=== PATIENT | female | born 1965 | race Hispanic/Latino ===

== ENCOUNTER → 2018-12-15 | Outpatient (CLI) | payer OTHER ==
[~2018-12-15] MED LIST: LEVO100T4 PO; LEVO500T2 PO; LEVO50TA4 PO; LORA10TA7 PO; NAPR-1023 PO
== END | disposition home or self-care (01) ==
LOC: RAH 15:18
DX: Z12.31 Encounter for screening mammogram for malignant neoplasm of breast (principal)
CPT/HCPCS: 77067

== ENCOUNTER 2019-04-18 11:46 | Inpatient (IN) | payer OTHER | END 2019-04-28 18:20 | disposition home or self-care (01) | LOC: EDH 11:46 → 3BH 04-26 16:15 → EDHIP 15:20 → 3CH 18:19 | PROC: 05HM33Z Insertion of Infusion Device into Right Internal Jugular Vein, Percutaneous Approach (ICD-10-PCS; principal; 2019-04-27 13:38) | PROC: B543ZZA Ultrasonography of Right Jugular Veins, Guidance (ICD-10-PCS; 2019-04-27 13:38) | DX: N17.9 Acute kidney failure, unspecified (principal); J18.9 Pneumonia, unspecified organism; I12.0 Hypertensive chronic kidney disease with stage 5 chronic kidney disease or end stage renal disease; N18.6 End stage renal disease; D64.9 Anemia, unspecified; E11.22 Type 2 diabetes mellitus with diabetic chronic kidney disease; I12.9 Hypertensive chronic kidney disease with stage 1 through stage 4 chronic kidney disease, or unspecified chronic kidney disease ==

== ENCOUNTER 2019-04-29 13:54 | Emergency (ER) | payer OTHER ==
[~2019-04-29 13:54] MED LIST changes: +BENZ-51 PO; +FEXO-59 PO; +FLUT16H NASAL; +FLUT1BLS12 IH; +IBUP-2077 PO; +LEVO100 PO; -LEVO100T4 PO; -LEVO500T2 PO; -LEVO50TA4 PO; +LISI10TA7 PO; -LORA10TA7 PO; +MONT10TA24 PO; -NAPR-1023 PO; +TRAM50TA4 PO; +ZOLP10TA6 PO
== END 2019-04-29 14:20 | disposition home or self-care (01) ==
LOC: EDH 13:54
DX: Z48.01 Encounter for change or removal of surgical wound dressing (principal); Z88.1 Allergy status to other antibiotic agents; Z98.890 Other specified postprocedural states
CPT/HCPCS: 99281

== ENCOUNTER 2019-05-08 14:25 | Observation (INO) | payer OTHER ==
[~2019-05-08] VITALS: Ht 157.5 cm; Wt 70.2 kg
[2019-05-08 15:17] LABS: EOSINOPHILS % (AUTO) 0.2 % (0.0-8.0); HEMATOCRIT 27.1 % (36-48); LYMPHOCYTES % (AUTO) 9.9 % (21.0-51.0); MEAN CORPUSCULAR HEMOGLOBIN 29.3 pg (27.0-33.0); MEAN CORPUSCULAR HGB CONC 33.9 g/dL (32.0-36.0); MEAN CORPUSCULAR VOLUME 86.6 fL (79-99); MONOCYTES % (AUTO) 3.5 % (3.0-13.0); NEUTROPHILS % (AUTO) 85.4 % (40.0-77.0); PLATELET COUNT (AUTO) 219 K/uL (130-400); RED BLOOD CELL COUNT(AUTO) 3.13 MIL/uL (4.00-5.50); RED CELL DISTRIBUTION WIDTH 15.9 % (11.0-15.5); WHITE BLOOD COUNT (AUTO) 10.6 K/uL (4.8-10.8)
[2019-05-08 15:32] LABS: INR 1.02 (0.85-1.15); PARTIAL THROMBOPLASTIN TIME 30.3 SEC (26.3-35.5); PROTHROMBIN TIME 10.7 SEC (9.6-11.6)
[2019-05-08] MEDS ORDERED: ONDANSETRON HCL 4 MG/2 ML VIAL ONE (15:34)
[2019-05-08] MEDS ORDERED: SODIUM CHLORIDE 0.9% 1000ML 1,000 ML IV ONE ×2 (15:35→20:26)
[2019-05-08 15:50] LABS: ALBUMIN 3.3 g/dL (3.5-5.0); ASPARTATE AMINOTRANSFERASE 17 U/L (10-37); BILIRUBIN,TOTAL 0.6 mg/dL (0.2-1.0); CARBON DIOXIDE 27 mmol/L (21-32); CHLORIDE 92 mmol/L (101-111); CREATINE KINASE, TOTAL 73 U/L (21-232); GLOMERULAR FILTR. RATE CALC 5 mL/min (>60); GLUCOSE,RANDOM 115 mg/dL (70-105); LDL DIRECT 104 mg/dL (0-99); POTASSIUM 3.6 mmol/L (3.5-5.1); SODIUM SERUM 133 mmol/L (136-145); TOTAL PROTEIN, SERUM 7.1 g/dL (6.0-8.3); UREA NITROGEN, BLOOD 31 mg/dL (7-18)
[2019-05-08 15:53] LABS: CREATININE 8.9 mg/dL (0.5-1.5)
[2019-05-08 16:03] LABS: ALANINE AMINOTRANSFERASE < 6 U/L (12-78)
[2019-05-08 17:15] LABS: APPEARANCE,URINE Clear (CLEAR); BILIRUBIN,URINE Negative (NEGATIVE); COLOR,URINE Yellow (YELLOW); GLUCOSE, URINE (UA) Negative (NEGATIVE); KETONES,URINE Negative (NEGATIVE); LEUKOCYTE ESTERASE ,URINE Small (NEGATIVE); NITRATE,URINE Negative (NEGATIVE); OCCULT BLOOD,URINE Large (NEGATIVE); PH,URINE 7.5 (5.0-8.0); PROTEIN,URINE 300 mg/dL (NEGATIVE)
[2019-05-08 17:23] LABS: AMPHET/METH SCREEN,URINE NEGATIVE (NEGATIVE); BARBITURATE SCREEN, URINE NEGATIVE (NEGATIVE); BENZODIAZEPINES SCREEN,URINE NEGATIVE (NEGATIVE); CANNABINOID SCREEN,URINE NEGATIVE (NEGATIVE); COCAINE SCREEN,URINE NEGATIVE (NEGATIVE); OPIATE SCREEN,URINE NEGATIVE (NEGATIVE); PHENCYCLIDINE SCREEN,URINE NEGATIVE (NEGATIVE)
[2019-05-08 17:39] LABS: BACTERIA,URINE Few /HPF (None Seen)
[2019-05-08 17:40] LABS: MUCUS,URINE Few LPF (None Seen)
[2019-05-08 19:05] VITALS: BP 138/65
[2019-05-08] MEDS: SODIUM CHLORIDE 0.9% 1000ML 1,000 ML IV SCH (20:09)
[2019-05-08] MEDS ORDERED: ONDANSETRON HCL 4 MG/2 ML VIAL IV PRN (20:15)
[2019-05-08] MEDS ORDERED: HYDRALAZINE HCL 20 MG/ML VIAL IV PRN (20:15)
[2019-05-08] MEDS ORDERED: ACETAMINOPHEN 325 MG TAB PO PRN ×2 (20:15)
[2019-05-08] MEDS ORDERED: FAMOTIDINE/PF 20 MG/2 ML VIAL IV ONE (20:31)
[2019-05-08] MEDS ORDERED: MORPHINE SULFATE 2 MG/ML 1ML SYG IM PRN (20:45)
[2019-05-08 22:42] LABS: CHOLESTEROL 172 mg/dL (<200); HDL CHOLESTEROL 120 mg/dL (35-85); LDL DIRECT 96 mg/dL (0-99); TRIGLYCERIDES 93 mg/dL (30-200)
[2019-05-09 00:02] VITALS: BP 149/87
[2019-05-09] MEDS ORDERED: LEVO100 PO (00:34)
[2019-05-09] MEDS ORDERED: FEXO-59 PO (00:34)
[2019-05-09] MEDS ORDERED: FLUT1BLS12 IH (00:34)
[2019-05-09] MEDS ORDERED: BENZ-51 PO (00:34)
[2019-05-09] MEDS ORDERED: ZOLP10TA6 PO (00:34)
[2019-05-09] MEDS ORDERED: ACET325C6 PO (00:34)
[2019-05-09] MEDS ORDERED: BACL10TA PO (00:34)
[2019-05-09] MEDS ORDERED: HEPARIN SODIUM 5000UNIT/ML 1ML VIAL SQ SCH ×2 (00:45→09:00)
[2019-05-09 04:05] VITALS: BP 143/80
[2019-05-09 05:16] LABS: BASOPHILS % (AUTO) 0.7 % (0.0-5.0); EOSINOPHILS % (AUTO) 0.3 % (0.0-8.0); HEMATOCRIT 25.7 % (36-48); LYMPHOCYTES % (AUTO) 11.8 % (21.0-51.0); MEAN CORPUSCULAR HEMOGLOBIN 29.6 pg (27.0-33.0); MEAN CORPUSCULAR HGB CONC 34.5 g/dL (32.0-36.0); MEAN CORPUSCULAR VOLUME 85.9 fL (79-99); MONOCYTES % (AUTO) 5.1 % (3.0-13.0); NEUTROPHILS % (AUTO) 82.1 % (40.0-77.0); PLATELET COUNT (AUTO) 181 K/uL (130-400); RED BLOOD CELL COUNT(AUTO) 2.99 MIL/uL (4.00-5.50); RED CELL DISTRIBUTION WIDTH 15.9 % (11.0-15.5); WHITE BLOOD COUNT (AUTO) 9.4 K/uL (4.8-10.8)
[2019-05-09 05:25] LABS: ALBUMIN 2.7 g/dL (3.5-5.0); BILIRUBIN,TOTAL 0.6 mg/dL (0.2-1.0); MAGNESIUM 2.3 mg/dL (1.80-2.40); PHOSPHORUS 5.3 mg/dL (2.5-4.9); POTASSIUM 3.4 mmol/L (3.5-5.1); TOTAL PROTEIN, SERUM 6.2 g/dL (6.0-8.3)
[2019-05-09 05:44] LABS: CREATININE 9.1 mg/dL (0.5-1.5)
[2019-05-09] MEDS: SODIUM CHLORIDE 0.9% 1000ML 1,000 ML IV SCH (06:32)
[2019-05-09 08:00] VITALS: BP 152/84
--- NOTE | 2019-05-09 08:00 | NUR ---
OBSERVED IN BED WITH NO ACUTE DISTRESS, CURRENTLY IN DIALYSIS AT THE BEDSIDE, DENIES PAIN. PLAN OF CARE EXPLAINED WITH RETURNED UNDERSTANDING.
[2019-05-09] MEDS ORDERED: FAMOTIDINE/PF 20 MG/2 ML VIAL IV SCH (09:00)
[2019-05-09] MEDS ORDERED: ENOXAPARIN SODIUM 30 MG/0.3 ML SQ SCH (09:00)
[2019-05-09] MEDS ORDERED: EPOETIN ALFA 10,000 UNIT/ML VIAL SQ SCH (09:30)
[2019-05-09] MEDS ORDERED: 0.9% SODIUM CHLORIDE 1000 ML IV BAG IV PRN (10:00)
[2019-05-09] MEDS ORDERED: HEPARIN SODIUM 5000UNIT/ML 1ML VIAL IJ PRN ×2 (10:00)
[2019-05-09] MEDS ORDERED: SODIUM CHLORIDE 0.9% 1000ML 1,000 ML IV PRN (10:00)
[2019-05-09 12:49] VITALS: BP 140/88
[2019-05-09] MEDS ORDERED: BISA5TAB12 PO (13:05)
[2019-05-09] MEDS ORDERED: ONDA8TAB12 PO (13:05)
[2019-05-09] MEDS ORDERED: LACTULOSE 20 GM/30 ML UDCUP PO PRN (13:15)
[2019-05-09] MEDS ORDERED: BENZONATATE 100 MG CAPSULE PO PRN (13:30)
[2019-05-09 16:00] VITALS: BP 120/65
--- NOTE | 2019-05-09 16:10 | NUR ---
LACTULOSE WAS GIVEN RESULTING IN BM'S, AND COUGH MEDICATION WAS ADMINISTERED.
--- NOTE | 2019-05-09 19:20 | NUR ---
DISCHARGE INSTRUCTIONS WERE EXPLAINED TO THE PATIENT WITH FOLLOW UP APPOINTMENT, PRESCRIPTION GIVEN AND IV ACCESS REMOVED WITHOUT PROBLEM. PT LEFT THE UNIT VIA W/C IN STABLE CONDITION.
[2019-05-09] MEDS ORDERED: BISACODYL 5 MG TABLET.DR PO SCH (21:00)
== END 2019-05-09 19:20 | disposition home or self-care (01) ==
LOC: EDH 14:25 → EDHIP 20:09 → 3AH 21:43
PROVIDERS: ADMIT Internal Medicine; ATTEND Internal Medicine
DX: R11.2 Nausea with vomiting, unspecified (principal); K52.9 Noninfective gastroenteritis and colitis, unspecified; R53.1 Weakness; R05 Cough; I12.0 Hypertensive chronic kidney disease with stage 5 chronic kidney disease or end stage renal disease; E11.22 Type 2 diabetes mellitus with diabetic chronic kidney disease; N18.6 End stage renal disease; E11.51 Type 2 diabetes mellitus with diabetic peripheral angiopathy without gangrene; D64.9 Anemia, unspecified; E78.5 Hyperlipidemia, unspecified; R79.89 Other specified abnormal findings of blood chemistry; R94.31 Abnormal electrocardiogram [ECG] [EKG]; I77.6 Arteritis, unspecified; Z99.2 Dependence on renal dialysis; Z90.49 Acquired absence of other specified parts of digestive tract; Z91.19 Patient's noncompliance with other medical treatment and regimen; Z87.440 Personal history of urinary (tract) infections; Z87.01 Personal history of pneumonia (recurrent); Z79.899 Other long term (current) drug therapy; Z88.1 Allergy status to other antibiotic agents
CPT/HCPCS: 36415 ×2; 70450; 71045; 80053 ×2; 80061; 80305; 81001; 82550; 82948 ×3; 83721; 83735; 84100; 84484 ×5; 85025 ×2; 85610; 85730; 93005 ×4; 96361; 96372; 96374; 99284; G0378 ×21; J0885; J1644 ×2; J2405; J3490 ×2; J7030 ×3; 90935

== ENCOUNTER 2019-05-30 01:34 | Inpatient (IN) | payer OTHER ==
[~2019-05-30] VITALS: Ht 152.4 cm; Wt 69.9 kg
[~2019-05-30 01:34] MED LIST changes: +ACET325C6 PO; +BACL10TA PO; +BISA5TAB12 PO; -FLUT16H NASAL; -IBUP-2077 PO; -LISI10TA7 PO; -MONT10TA24 PO; +ONDA8TAB12 PO; -TRAM50TA4 PO
[2019-05-30] MEDS ORDERED: IPRATROPIUM/ALBUTEROL SULFATE 3 ML SOLUTION IH ONE ×2 (02:42→06:39)
[2019-05-30 02:54] LABS: BASOPHILS % (AUTO) 1.1 % (0.0-5.0); EOSINOPHILS % (AUTO) 1.1 % (0.0-8.0); HEMATOCRIT 25.6 % (36-48); LYMPHOCYTES % (AUTO) 18.5 % (21.0-51.0); MEAN CORPUSCULAR HEMOGLOBIN 26.9 pg (27.0-33.0); MEAN CORPUSCULAR HGB CONC 32.6 g/dL (32.0-36.0); MEAN CORPUSCULAR VOLUME 82.4 fL (79-99); NEUTROPHILS % (AUTO) 72.3 % (40.0-77.0); PLATELET COUNT (AUTO) 172 K/uL (130-400); RED CELL DISTRIBUTION WIDTH 15.9 % (11.0-15.5); WHITE BLOOD COUNT (AUTO) 6.3 K/uL (4.8-10.8)
[2019-05-30 03:03] LABS: CREATININE 5.4 mg/dL (0.5-1.5); POTASSIUM 3.2 mmol/L (3.5-5.1)
[2019-05-30 03:08] LABS: APPEARANCE,URINE Clear (CLEAR); BILIRUBIN,URINE Negative (NEGATIVE); GLUCOSE, URINE (UA) Negative (NEGATIVE); KETONES,URINE Negative (NEGATIVE); LEUKOCYTE ESTERASE ,URINE Moderate (NEGATIVE); NITRATE,URINE Negative (NEGATIVE); OCCULT BLOOD,URINE Large (NEGATIVE); PH,URINE >=9.0 (5.0-8.0); PROTEIN,URINE 300 mg/dL (NEGATIVE); UROBILINOGEN,URINE 0.2 mg/dL (0.2-1.0)
[2019-05-30 03:08] LABS: BILIRUBIN,TOTAL 0.5 mg/dL (0.2-1.0); TOTAL PROTEIN, SERUM 6.7 g/dL (6.0-8.3)
[2019-05-30 03:09] LABS: COLOR,URINE RED (YELLOW)
[2019-05-30 03:11] LABS: BACTERIA,URINE Few /HPF (None Seen); MUCUS,URINE None Seen LPF (None Seen); RBC,URINE TNTC /HPF (0-1); SQUAMOUS EPITHELIAL CELL,UR None Seen /HPF (0-2)
[2019-05-30] MEDS ORDERED: AZITHROMYCIN 500MG+NS 250ML 250 ML IV ONE (03:38)
[2019-05-30] MEDS ORDERED: CEFTRIAXONE SODIUM 1 GM ONE (03:38)
[2019-05-30 03:54] LABS: INR 1.09 (0.85-1.15); PROTHROMBIN TIME 11.4 SEC (9.6-11.6)
[2019-05-30] MEDS: CEFTRIAXONE SODIUM 1 GM IVP SCH ×2 (04:30→15:50)
[2019-05-30] MEDS: AZITHROMYCIN 500MG+NS 250ML 250 ML IV SCH (04:30)
[2019-05-30] MEDS ORDERED: POTASSIUM CHLORIDE 20 MEQ ERTAB PO ONE ×2 (04:30→04:35)
[2019-05-30] MEDS ORDERED: IPRATROPIUM/ALBUTEROL SULFATE 3 ML SOLUTION IH SCH (06:00)
[2019-05-30] MEDS ORDERED: HYDRALAZINE HCL 20 MG/ML VIAL IV PRN ×2 (06:00→10:45)
[2019-05-30] MEDS ORDERED: GUAIFENESIN-DM 200/20 MG 10 ML ONE (06:43)
[2019-05-30] MEDS ORDERED: SODIUM CHLORIDE 3% FOR INHALATION 4 ML/AMP VIAL.NEB IH ONE ×2 (06:46→13:03)
[2019-05-30] MEDS: INSULIN HUMULIN R 100 UNIT/ML 3ML SQ SCH ×4 (07:30→21:00)
[2019-05-30 08:32] VITALS: BP 159/89
[2019-05-30] MEDS: FAMOTIDINE 20MG TAB 20 MG TAB PO SCH ×2 (09:50→19:37)
[2019-05-30] MEDS: GUAIFENESIN-DM 200/20 MG 10 ML PO PRN ×3 (09:50→19:39)
[2019-05-30] MEDS ORDERED: MONT10TA24 PO (10:21)
[2019-05-30] MEDS ORDERED: LISI10TA7 PO (10:21)
[2019-05-30] MEDS ORDERED: ONDANSETRON HCL 4 MG/2 ML VIAL IVP PRN (10:45)
[2019-05-30 11:43] VITALS: BP 144/74
[2019-05-30] MEDS: IPRATROPIUM/ALBUTEROL SULFATE 3 ML SOLUTION IH SCH ×4 (13:06→22:00)
--- NOTE | 2019-05-30 14:44 | NUR ---
DCP CM met with pt discussed dc plans. Pt is independent prior to admission, lives at home w/spouse. Pt has a handicap ramp at home, goes t [facility] @1:45pm for dialysis. Denies any other equipments/services. Feels safe to go back home, spouse able to assist with transportation and needs as necessary. DC plan to home once stable. CM to cont to follow up. Addendum: 05/30/19 at 1445 by MEAGHAN WATERS LVN CM Amended: Links added.
[2019-05-30] MEDS: ACETAMINOPHEN EXTRA STRENGTH 500 MG TABLET PO PRN (15:51)
[2019-05-30 17:02] VITALS: BP 154/73
[2019-05-30] MEDS: MONTELUKAST SODIUM 10 MG TAB PO SCH (17:45)
[2019-05-30] MEDS: BISACODYL 5 MG TABLET.DR PO SCH (19:37)
[2019-05-30 20:37] VITALS: BP 152/81
[2019-05-30 23:49] VITALS: BP 162/84
[2019-05-31] MEDS: IPRATROPIUM/ALBUTEROL SULFATE 3 ML SOLUTION IH SCH ×6 (02:05→22:40)
[2019-05-31] MEDS: CEFTRIAXONE SODIUM 1 GM IVP SCH ×2 (04:20→16:50)
[2019-05-31] MEDS: AZITHROMYCIN 500MG+NS 250ML 250 ML IV SCH (04:20)
[2019-05-31] MEDS: GUAIFENESIN-DM 200/20 MG 10 ML PO PRN (04:29)
[2019-05-31] MEDS: ACETAMINOPHEN EXTRA STRENGTH 500 MG TABLET PO PRN (04:30)
[2019-05-31 04:38] VITALS: BP 149/86
[2019-05-31 04:52] LABS: BASOPHILS % (AUTO) 0.4 % (0.0-5.0); EOSINOPHILS % (AUTO) 0.3 % (0.0-8.0); HEMATOCRIT 22.9 % (36-48); LYMPHOCYTES % (AUTO) 14.1 % (21.0-51.0); MEAN CORPUSCULAR HEMOGLOBIN 26.5 pg (27.0-33.0); MEAN CORPUSCULAR HGB CONC 32.7 g/dL (32.0-36.0); MEAN CORPUSCULAR VOLUME 81.1 fL (79-99); NEUTROPHILS % (AUTO) 80.2 % (40.0-77.0); PLATELET COUNT (AUTO) 168 K/uL (130-400); RED BLOOD CELL COUNT(AUTO) 2.83 MIL/uL (4.00-5.50); RED CELL DISTRIBUTION WIDTH 16.1 % (11.0-15.5); WHITE BLOOD COUNT (AUTO) 6.9 K/uL (4.8-10.8)
[2019-05-31 05:08] LABS: ALBUMIN 2.7 g/dL (3.5-5.0); ASPARTATE AMINOTRANSFERASE 16 U/L (10-37); BILIRUBIN,TOTAL 0.5 mg/dL (0.2-1.0); CARBON DIOXIDE 29 mmol/L (21-32); CHLORIDE 94 mmol/L (101-111); CREATININE 7.7 mg/dL (0.5-1.5); GLOMERULAR FILTR. RATE CALC 6 mL/min (>60); GLUCOSE,RANDOM 106 mg/dL (70-105); POTASSIUM 3.4 mmol/L (3.5-5.1); SODIUM SERUM 133 mmol/L (136-145); TOTAL PROTEIN, SERUM 6.4 g/dL (6.0-8.3); UREA NITROGEN, BLOOD 25 mg/dL (7-18)
[2019-05-31 05:10] LABS: ALANINE AMINOTRANSFERASE < 6 U/L (12-78)
[2019-05-31] MEDS ORDERED: LEVOTHYROXINE 50 MCG TABLET ONE (05:50)
[2019-05-31] MEDS: LEVOTHYROXINE 50 MCG TABLET PO SCH ×2 (05:55→19:22)
[2019-05-31] MEDS: INSULIN HUMULIN R 100 UNIT/ML 3ML SQ SCH ×4 (05:56→20:03)
[2019-05-31 07:30] VITALS: BP 153/81
[2019-05-31] MEDS ORDERED: LISINOPRIL 10 MG TABLET PO SCH (09:00)
[2019-05-31 09:18] LABS: CHOLESTEROL 133 mg/dL (<200); HDL CHOLESTEROL 50 mg/dL (35-85); HEMOGLOBIN A1C 4.6 % (4.0-6.0); LDL DIRECT 67 mg/dL (0-99); TRIGLYCERIDES 69 mg/dL (30-200)
[2019-05-31] MEDS: FAMOTIDINE 20MG TAB 20 MG TAB PO SCH (09:19)
[2019-05-31] MEDS: BISACODYL 5 MG TABLET.DR PO SCH ×2 (09:20→19:57)
[2019-05-31 09:55] LABS: % IRON SATURATION 6.9 % (22-44)
[2019-05-31 11:00] VITALS: BP 181/96
[2019-05-31] MEDS: GUAIFENESIN-CODEINE 5 ML SYRUP PO PRN ×2 (12:54→23:51)
[2019-05-31] MEDS ORDERED: SODIUM CHLORIDE 0.9% 1000ML 1,000 ML IV PRN (14:00)
[2019-05-31] MEDS ORDERED: EPOETIN ALFA 10,000 UNIT/ML VIAL SQ ONE (14:00)
[2019-05-31] MEDS ORDERED: 0.9% SODIUM CHLORIDE 1000 ML IV BAG IV PRN (14:00)
[2019-05-31] MEDS ORDERED: HEPARIN SODIUM 5000UNIT/ML 1ML VIAL IJ PRN (14:00)
[2019-05-31] MEDS ORDERED: NITROGLYCERIN 0.4 MG SL TAB SL PRN (14:00)
[2019-05-31] MEDS ORDERED: COMPOUND IV MISC 1 EACH IVSOLN MISC PRN (15:08)
[2019-05-31 16:00] VITALS: BP 176/83
[2019-05-31] MEDS: MONTELUKAST SODIUM 10 MG TAB PO SCH (16:50)
[2019-05-31 20:18] VITALS: BP 143/78
[2019-06-01 00:34] VITALS: BP 151/81
[2019-06-01] MEDS: IPRATROPIUM/ALBUTEROL SULFATE 3 ML SOLUTION IH SCH ×6 (02:00→22:00)
[2019-06-01 04:00] VITALS: BP 144/75
[2019-06-01] MEDS: CEFTRIAXONE SODIUM 1 GM IVP SCH ×2 (04:00→15:26)
[2019-06-01] MEDS: AZITHROMYCIN 500MG+NS 250ML 250 ML IV SCH (04:00)
[2019-06-01] MEDS: INSULIN HUMULIN R 100 UNIT/ML 3ML SQ SCH ×4 (05:57→21:00)
[2019-06-01] MEDS: GUAIFENESIN-CODEINE 5 ML SYRUP PO PRN ×3 (06:49→23:28)
[2019-06-01 07:30] LABS: BASOPHILS % (AUTO) 1.5 % (0.0-5.0); HEMATOCRIT 21.2 % (36-48); LYMPHOCYTES % (AUTO) 19.8 % (21.0-51.0); MEAN CORPUSCULAR HEMOGLOBIN 26.3 pg (27.0-33.0); MEAN CORPUSCULAR HGB CONC 32.4 g/dL (32.0-36.0); MEAN CORPUSCULAR VOLUME 81.3 fL (79-99); NEUTROPHILS % (AUTO) 69.7 % (40.0-77.0); PLATELET COUNT (AUTO) 189 K/uL (130-400); RED CELL DISTRIBUTION WIDTH 16.6 % (11.0-15.5); WHITE BLOOD COUNT (AUTO) 5.6 K/uL (4.8-10.8)
[2019-06-01 07:45] LABS: CREATININE 5.7 mg/dL (0.5-1.5); POTASSIUM 3.4 mmol/L (3.5-5.1)
[2019-06-01 08:00] VITALS: BP 154/81
[2019-06-01 08:09] LABS: HEPATITIS Bs ANTIGEN SCREEN P Negative (Negative)
[2019-06-01] MEDS: IRON SUCROSE COMPLEX 100 MG in SODIUM CHLORIDE 0.9% 50 ML IV SCH (08:56)
[2019-06-01] MEDS: METOPROLOL TARTRATE 25 MG TAB PO SCH ×2 (08:57→23:18)
[2019-06-01] MEDS: BISACODYL 5 MG TABLET.DR PO SCH ×3 (09:00→23:18)
[2019-06-01 11:54] VITALS: BP 146/77
[2019-06-01] MEDS: FAMOTIDINE 20MG TAB 20 MG TAB PO SCH (13:50)
[2019-06-01] MEDS: LISINOPRIL 10 MG TABLET PO SCH (13:54)
--- NOTE | 2019-06-01 14:48 | NUR ---
RD NOTIFICATION Pt admitted for Recurrent PNA. Pt NPO at time of screen, pending bronchoscopy. Renal Dialysis Diet resumed, Pt with Good PO (100%). Recommend to continue current diet order. Pt LBM 05/29/19. Noted Hgb 6.9; RD recommend to follow up with Iron-rich foods Diet education. Pt monitored labs: Hgb 6.9, Hct 21.1, Na 134, K 3.4, Cl 96, Cr 5.7, GFR 8, Ca 8.4, Alb 2.7. RD to continue to monitor. Please notify RD as nutritional concerns arise. Thank you. Addendum: 06/01/19 at [address] RD Amended: Links added.
[2019-06-01] MEDS ORDERED: SODIUM CHLORIDE 0.9% 250 ML IV ONE (15:23)
[2019-06-01] MEDS: ACETAMINOPHEN EXTRA STRENGTH 500 MG TABLET PO PRN (15:56)
[2019-06-01 16:00] VITALS: BP 160/73
[2019-06-01 20:00] VITALS: BP 152/87
[2019-06-01] MEDS: ACETAMINOPHEN 325 MG TAB PO PRN (23:29)
[2019-06-02] VITALS (15 sets, daily range): BP systolic 121–163; BP diastolic 62–90
[2019-06-02] MEDS: IPRATROPIUM/ALBUTEROL SULFATE 3 ML SOLUTION IH SCH ×6 (01:04→22:00)
[2019-06-02 04:41] LABS: BASOPHILS % (AUTO) 1.2 % (0.0-5.0); EOSINOPHILS % (AUTO) 2.2 % (0.0-8.0); HEMATOCRIT 23.1 % (36-48); LYMPHOCYTES % (AUTO) 18.1 % (21.0-51.0); MEAN CORPUSCULAR HEMOGLOBIN 28.1 pg (27.0-33.0); MEAN CORPUSCULAR HGB CONC 33.7 g/dL (32.0-36.0); MEAN CORPUSCULAR VOLUME 83.6 fL (79-99); NEUTROPHILS % (AUTO) 71.5 % (40.0-77.0); PLATELET COUNT (AUTO) 208 K/uL (130-400); RED BLOOD CELL COUNT(AUTO) 2.77 MIL/uL (4.00-5.50); RED CELL DISTRIBUTION WIDTH 16.3 % (11.0-15.5); WHITE BLOOD COUNT (AUTO) 8.3 K/uL (4.8-10.8)
[2019-06-02] MEDS: CEFTRIAXONE SODIUM 1 GM IVP SCH ×2 (04:54→15:54)
[2019-06-02] MEDS: AZITHROMYCIN 500MG+NS 250ML 250 ML IV SCH (04:54)
[2019-06-02 04:55] LABS: CREATININE 7.6 mg/dL (0.5-1.5); MAGNESIUM 1.9 mg/dL (1.80-2.40); PHOSPHORUS 4.5 mg/dL (2.5-4.9); POTASSIUM 3.8 mmol/L (3.5-5.1)
[2019-06-02] MEDS: LEVOTHYROXINE 50 MCG TABLET PO SCH (04:55)
[2019-06-02] MEDS: INSULIN HUMULIN R 100 UNIT/ML 3ML SQ SCH ×4 (06:46→21:00)
[2019-06-02] MEDS: BISACODYL 5 MG TABLET.DR PO SCH ×2 (07:55→21:04)
[2019-06-02] MEDS: METOPROLOL TARTRATE 25 MG TAB PO SCH ×2 (10:49→21:04)
[2019-06-02] MEDS: IRON SUCROSE COMPLEX 100 MG in SODIUM CHLORIDE 0.9% 50 ML IV SCH (10:55)
[2019-06-02] MEDS ORDERED: DEXTROSE 50%-WATER 50 ML DISP.SYRIN IV ONE (11:32)
[2019-06-02] MEDS ORDERED: LIDOCAINE HCL 2% 20ML ONE ×2 (12:55→14:18)
[2019-06-02] MEDS ORDERED: FENTANYL CITRATE PF 50 MCG/1 ML 2ML VIAL ONE (12:55)
[2019-06-02] MEDS ORDERED: PROPOFOL 10 MG/ML 20ML VIAL IV ONE (12:55)
[2019-06-02] MEDS ORDERED: EPINEPHRINE 1 MG/ML AMPULE ONE (13:19)
--- NOTE | 2019-06-02 15:41 | NUR ---
PATIENT IN PROCEDURE
[2019-06-02] MEDS: FAMOTIDINE 20MG TAB 20 MG TAB PO SCH (15:54)
[2019-06-02] MEDS: LISINOPRIL 10 MG TABLET PO SCH (15:54)
--- NOTE | 2019-06-02 16:01 | NUR ---
ARRIVAL TO FLOOR ROOM 224. PT IS AAO3 DENIES CP DENIES SOB DENIES NV. NO COMPLAINTS AT THIS TIME. RESTING IN BED. PEPCID PO AND LISINOPRIL PO GIVEN.
[2019-06-02] MEDS: GUAIFENESIN-CODEINE 5 ML SYRUP PO PRN ×2 (16:06→21:20)
[2019-06-02 16:32] LABS: HEMATOCRIT 26.2 % (36-48); MEAN CORPUSCULAR HEMOGLOBIN 27.1 pg (27.0-33.0); MEAN CORPUSCULAR HGB CONC 32.5 g/dL (32.0-36.0); MEAN CORPUSCULAR VOLUME 83.5 fL (79-99); PLATELET COUNT (AUTO) 240 K/uL (130-400); RED BLOOD CELL COUNT(AUTO) 3.14 MIL/uL (4.00-5.50); RED CELL DISTRIBUTION WIDTH 16.4 % (11.0-15.5); WHITE BLOOD COUNT (AUTO) 8.6 K/uL (4.8-10.8)
[2019-06-02 18:25] LABS: APPEARANCE BODY FLUID CLOUDY (CLEAR); BODY FLUID WBC 10 /cu. mm.; COLOR,BODY FLUID RED (LT YELLOW); SPECIMENTYPE,BODY FLUID LAVAGE; TOTAL VOLUME,BODY FLUID 5 mL
[2019-06-02 18:26] LABS: BODY FLUID RBC 37 /cu. mm.
[2019-06-02 18:34] LABS: BF EOSINOPHIL 2 %; BF LYMPHOCYTE 1 %; BF MONOCYTE 1 %
[2019-06-02] MEDS: ACETAMINOPHEN EXTRA STRENGTH 500 MG TABLET PO PRN (21:27)
[2019-06-03] VITALS (9 sets, daily range): BP systolic 137–162; BP diastolic 72–94
[2019-06-03] MEDS: IPRATROPIUM/ALBUTEROL SULFATE 3 ML SOLUTION IH SCH ×5 (02:00→18:15)
[2019-06-03 04:01] LABS: BASOPHILS % (AUTO) 1.1 % (0.0-5.0); EOSINOPHILS % (AUTO) 1.8 % (0.0-8.0); HEMATOCRIT 23.1 % (36-48); LYMPHOCYTES % (AUTO) 20.4 % (21.0-51.0); MEAN CORPUSCULAR HEMOGLOBIN 27.9 pg (27.0-33.0); MEAN CORPUSCULAR HGB CONC 33.6 g/dL (32.0-36.0); MEAN CORPUSCULAR VOLUME 82.9 fL (79-99); MONOCYTES % (AUTO) 7.5 % (3.0-13.0); NEUTROPHILS % (AUTO) 69.2 % (40.0-77.0); PLATELET COUNT (AUTO) 237 K/uL (130-400); RED BLOOD CELL COUNT(AUTO) 2.78 MIL/uL (4.00-5.50); RED CELL DISTRIBUTION WIDTH 16.6 % (11.0-15.5); WHITE BLOOD COUNT (AUTO) 7.6 K/uL (4.8-10.8)
[2019-06-03 04:15] LABS: CREATININE 5.8 mg/dL (0.5-1.5)
[2019-06-03] MEDS: CEFTRIAXONE SODIUM 1 GM IVP SCH ×2 (05:12→15:53)
[2019-06-03] MEDS: AZITHROMYCIN 500MG+NS 250ML 250 ML IV SCH (05:12)
[2019-06-03] MEDS: GUAIFENESIN-CODEINE 5 ML SYRUP PO PRN ×3 (05:31→20:47)
[2019-06-03] MEDS: LEVOTHYROXINE 50 MCG TABLET PO SCH (06:47)
[2019-06-03] MEDS: INSULIN HUMULIN R 100 UNIT/ML 3ML SQ SCH (06:48)
[2019-06-03] MEDS: FAMOTIDINE 20MG TAB 20 MG TAB PO SCH (07:53)
[2019-06-03] MEDS: BISACODYL 5 MG TABLET.DR PO SCH ×2 (07:53→20:47)
[2019-06-03] MEDS: LISINOPRIL 10 MG TABLET PO SCH (07:53)
[2019-06-03] MEDS: METOPROLOL TARTRATE 25 MG TAB PO SCH ×2 (07:53→20:47)
[2019-06-03] MEDS: IRON SUCROSE COMPLEX 100 MG in SODIUM CHLORIDE 0.9% 50 ML IV SCH (07:53)
--- NOTE | 2019-06-03 08:00 | NUR ---
ASSESSMENT PT IS AAOX3 DENIES CP DENIES SOB DENIES NV NO COMPLAINTS RESTING IN BED. CALL LIGHT WITHIN REACH. FAMILY IS AT BEDSIDE. DROPLET PRECS IN PLACE.
--- NOTE | 2019-06-03 16:30 | NUR ---
STATUS RESTING IN BED, FAMILY AND VISITORS AT BEDSIDE. CALL LIGHT WITHIN REACH.
[2019-06-04] VITALS (7 sets, daily range): BP systolic 138–157; BP diastolic 74–84
--- NOTE | 2019-06-04 | NUR ---
Patient reports sob with exertion/ ambulation. Uses 2L of 02 after ambulation and coughing. Patient has wheezing and refusing neb treatments. Tolerating antibiotics. New 22 g iv started to RFA. Patient has pink tinged sputum along with bloody sputum. Awaiting bronchoscopy results. Dialysis site to Right upper chest. Dressing, CDI.
[2019-06-04] MEDS: GUAIFENESIN-CODEINE 5 ML SYRUP PO PRN ×2 (03:37→12:21)
[2019-06-04] MEDS: CEFTRIAXONE SODIUM 1 GM IVP SCH ×2 (03:37→16:13)
[2019-06-04] MEDS: AZITHROMYCIN 500MG+NS 250ML 250 ML IV SCH (03:37)
[2019-06-04] MEDS: LEVOTHYROXINE 50 MCG TABLET PO SCH (06:41)
--- NOTE | 2019-06-04 09:12 | NUR ---
DR. Kenney ALDRIDGE IN ROOM SPEAKING WITH PT. RE:PLAN OF CARE; QUESTIONS ANSWERED BY DR. Kenney ALDRIDGE.
[2019-06-04] MEDS: FAMOTIDINE 20MG TAB 20 MG TAB PO SCH (09:52)
[2019-06-04] MEDS: BISACODYL 5 MG TABLET.DR PO SCH ×2 (09:52→20:53)
[2019-06-04] MEDS: METOPROLOL TARTRATE 25 MG TAB PO SCH ×2 (09:53→20:53)
[2019-06-04] MEDS: IRON SUCROSE COMPLEX 100 MG in SODIUM CHLORIDE 0.9% 50 ML IV SCH (09:53)
[2019-06-04] MEDS: LISINOPRIL 10 MG TABLET PO SCH (09:53)
[2019-06-04] MEDS ORDERED: PLEC3TAB PO (09:59)
--- NOTE | 2019-06-04 10:07 | NUR ---
FOREIGN GRECO, IN ROOM ASSESSING PT. AND INFORMING PT. AND PT.'S SPOUSE AT BEDSIDE RE:PLAN OF CARE. PT. MADE CABLE TOWER OPERATOR AWARE RE:CONTINUED SMALL AMTS OF HEMOPTYSIS WITH PHLEGM PRODUCTION, CABLE TOWER OPERATOR VERBALIZED UNDERSTANDING. QUESTIONS ANSWERED BY CABLE TOWER OPERATOR; PT. AND SPOUSE VERBALIZED MUTUAL UNDERSTANDING.
[2019-06-04] MEDS: METHYLPREDNISOLONE SOD SUCC 40MG/ML 1ML IVP SCH ×3 (12:09→22:59)
[2019-06-04] MEDS: IPRATROPIUM/ALBUTEROL SULFATE 3 ML SOLUTION IH SCH ×2 (19:25→23:53)
[2019-06-05 03:23] VITALS: BP 122/61
[2019-06-05] MEDS: METHYLPREDNISOLONE SOD SUCC 40MG/ML 1ML IVP SCH ×3 (04:14→17:35)
[2019-06-05] MEDS: AZITHROMYCIN 500MG+NS 250ML 250 ML IV SCH (04:14)
[2019-06-05] MEDS: CEFTRIAXONE SODIUM 1 GM IVP SCH ×2 (04:14→17:35)
[2019-06-05 04:25] LABS: HEMATOCRIT 24.2 % (36-48); MEAN CORPUSCULAR HEMOGLOBIN 26.9 pg (27.0-33.0); MEAN CORPUSCULAR HGB CONC 32.6 g/dL (32.0-36.0); MEAN CORPUSCULAR VOLUME 82.5 fL (79-99); PLATELET COUNT (AUTO) 292 K/uL (130-400); RED BLOOD CELL COUNT(AUTO) 2.93 MIL/uL (4.00-5.50); RED CELL DISTRIBUTION WIDTH 17.1 % (11.0-15.5); WHITE BLOOD COUNT (AUTO) 3.9 K/uL (4.8-10.8)
[2019-06-05 04:38] LABS: MAGNESIUM 2.1 mg/dL (1.80-2.40); POTASSIUM 5.1 mmol/L (3.5-5.1)
[2019-06-05 04:46] LABS: CREATININE 9.3 mg/dL (0.5-1.5)
[2019-06-05] MEDS: IPRATROPIUM/ALBUTEROL SULFATE 3 ML SOLUTION IH SCH ×4 (06:19→23:25)
[2019-06-05] MEDS: FAMOTIDINE 20MG TAB 20 MG TAB PO SCH (07:47)
[2019-06-05] MEDS: IRON SUCROSE COMPLEX 100 MG in SODIUM CHLORIDE 0.9% 50 ML IV SCH (07:48)
[2019-06-05] MEDS: LEVOTHYROXINE 50 MCG TABLET PO SCH (07:48)
[2019-06-05] MEDS: BISACODYL 5 MG TABLET.DR PO SCH ×2 (07:48→21:01)
[2019-06-05] MEDS: METOPROLOL TARTRATE 25 MG TAB PO SCH ×2 (07:51→21:00)
[2019-06-05] MEDS: LISINOPRIL 10 MG TABLET PO SCH (07:51)
[2019-06-05 07:55] VITALS: BP 129/75
--- NOTE | 2019-06-05 09:52 | NUR ---
DR. MEI IN ROOM SPEAKING WITH PT. AND FAMILY MEMBERS AT BEDSIDE RE:PLAN OF CARE. QUESTIONS ANSWERED BY DR. MEI.
[2019-06-05 11:43] VITALS: BP 141/79
[2019-06-05] MEDS: GUAIFENESIN-CODEINE 5 ML SYRUP PO PRN ×2 (14:00→23:41)
--- NOTE | 2019-06-05 14:33 | NUR ---
DC PLAN SPOKE TO PATIENT AND SPOUSE. RANDI SIGNED FOR [facility]. INFO FAXED. IGLESIA NOTIFIED. PENDING REP VISIT. Addendum: 06/05/19 at 1434 by HARPAL WILKS RN CM Amended: Links added.
[2019-06-05] MEDS ORDERED: PLECANATIDE 3 MG PO PRN (15:15)
[2019-06-05 15:42] VITALS: BP 151/87
[2019-06-05 19:00] VITALS: BP 127/76
[2019-06-05 22:57] VITALS: BP 152/81
--- NOTE | 2019-06-06 | NUR ---
Dialysis removed 1.7 liters. Patient tolerated procedure well.
[2019-06-06 03:28] VITALS: BP 133/83
[2019-06-06] MEDS: CEFTRIAXONE SODIUM 1 GM IVP SCH (03:51)
[2019-06-06 06:26] LABS: CREATININE 4.7 mg/dL (0.5-1.5); POTASSIUM 3.5 mmol/L (3.5-5.1)
[2019-06-06] MEDS ORDERED: IPRATROPIUM/ALBUTEROL SULFATE 3 ML SOLUTION IH ONE (06:48)
[2019-06-06 06:54] LABS: BASOPHILS % (AUTO) 0.1 % (0.0-5.0); LYMPHOCYTES % (AUTO) 5.7 % (21.0-51.0); MEAN CORPUSCULAR HGB CONC 32.6 g/dL (32.0-36.0); MEAN CORPUSCULAR VOLUME 82.8 fL (79-99); NEUTROPHILS % (AUTO) 91.2 % (40.0-77.0); PLATELET COUNT (AUTO) 252 K/uL (130-400); RED BLOOD CELL COUNT(AUTO) 2.54 MIL/uL (4.00-5.50); RED CELL DISTRIBUTION WIDTH 17.3 % (11.0-15.5); WHITE BLOOD COUNT (AUTO) 7.4 K/uL (4.8-10.8)
[2019-06-06] MEDS: IPRATROPIUM/ALBUTEROL SULFATE 3 ML SOLUTION IH SCH ×4 (07:11→23:36)
[2019-06-06 07:29] VITALS: BP 128/69
[2019-06-06] MEDS: LEVOTHYROXINE 50 MCG TABLET PO SCH (07:49)
[2019-06-06] MEDS: FAMOTIDINE 20MG TAB 20 MG TAB PO SCH (09:57)
[2019-06-06] MEDS: LISINOPRIL 10 MG TABLET PO SCH (09:58)
[2019-06-06] MEDS: METOPROLOL TARTRATE 25 MG TAB PO SCH ×4 (09:58→20:59)
[2019-06-06] MEDS: IRON SUCROSE COMPLEX 100 MG in SODIUM CHLORIDE 0.9% 50 ML IV SCH (09:58)
[2019-06-06] MEDS: BISACODYL 5 MG TABLET.DR PO SCH ×2 (09:58→21:00)
[2019-06-06] MEDS ORDERED: RENAL DOSE IV SCH ×2 (10:00→17:30)
[2019-06-06] MEDS: ZOSYN 3.375GM+NS 50ML 50 ML IV SCH ×2 (10:23→23:24)
[2019-06-06 11:49] VITALS: BP 142/75
[2019-06-06] MEDS: GUAIFENESIN-CODEINE 5 ML SYRUP PO PRN ×2 (12:47→21:04)
[2019-06-06 15:22] VITALS: BP 142/71
[2019-06-06] MEDS: CEFTRIAXONE SODIUM 2 GM VIAL IVP SCH (16:35)
[2019-06-06] MEDS: SULFAMETHOX-TMP DS 800/160 TAB PO SCH (18:40)
[2019-06-06] MEDS ORDERED: SODIUM CHLORIDE 0.9% 250 ML IV ONE (19:32)
--- NOTE | 2019-06-06 20:00 | NUR ---
PM NOTE PT RESTING IN BED, NO S/S OF DISTRESS. PATIENT RUNNING 1 UNIT OF PRBC'S FOR HEMOGLOBIN OF 6.9. DENIES PAIN AT THIS MOMENT. PATIENT IS ON NASAL CANULA, 2L. ON TELEMETRY PATIENT IS AFLUTTER AT 52. CALL LIGHT WITHIN REACH. INSTRUCTED TO CALL FOR ASSISTANCE. VERBALIZED UNDERSTANDING. Addendum: 06/07/19 at 0133 by MADDIE WATERS RN ON TELEMETRY PATIENT SINUS RHYTHM AT 84, NOT AFLUTTER. ENTERED IN ERROR.
[2019-06-06 20:35] VITALS: BP 131/67
[2019-06-06] MEDS ORDERED: PREDNISONE 10 MG TABLET PO SCH (21:00)
[2019-06-07] VITALS: BP 137/62
[2019-06-07 04:06] LABS: CREATININE 6.1 mg/dL (0.5-1.5)
[2019-06-07 04:14] LABS: BASOPHILS % (AUTO) 0.3 % (0.0-5.0); HEMATOCRIT 23.2 % (36-48); LYMPHOCYTES % (AUTO) 8.9 % (21.0-51.0); MEAN CORPUSCULAR HEMOGLOBIN 28.1 pg (27.0-33.0); MEAN CORPUSCULAR HGB CONC 33.7 g/dL (32.0-36.0); MEAN CORPUSCULAR VOLUME 83.4 fL (79-99); MONOCYTES % (AUTO) 4.7 % (3.0-13.0); NEUTROPHILS % (AUTO) 86.1 % (40.0-77.0); NUCLEATED RED BLOOD CELLS 0.1 % (0.0-0.19); PLATELET COUNT (AUTO) 203 K/uL (130-400); RED BLOOD CELL COUNT(AUTO) 2.79 MIL/uL (4.00-5.50); RED CELL DISTRIBUTION WIDTH 17.1 % (11.0-15.5); WHITE BLOOD COUNT (AUTO) 7.7 K/uL (4.8-10.8)
[2019-06-07 04:27] VITALS: BP 128/65
[2019-06-07] MEDS: CEFTRIAXONE SODIUM 2 GM VIAL IVP SCH (04:54)
[2019-06-07] MEDS: LEVOTHYROXINE 50 MCG TABLET PO SCH (05:53)
[2019-06-07] MEDS: IPRATROPIUM/ALBUTEROL SULFATE 3 ML SOLUTION IH SCH ×4 (06:29→23:21)
[2019-06-07] MEDS ORDERED: EPOETIN ALFA 10,000 UNIT/ML VIAL SQ SCH (09:15)
[2019-06-07] MEDS: ZOSYN 3.375GM+NS 50ML 50 ML IV SCH ×2 (10:00→21:52)
[2019-06-07] MEDS: METOPROLOL TARTRATE 50 MG TAB PO SCH ×2 (10:15→21:49)
[2019-06-07 11:34] VITALS: BP 136/75
[2019-06-07] MEDS: GUAIFENESIN-CODEINE 5 ML SYRUP PO PRN ×2 (11:44→22:12)
[2019-06-07] MEDS: FLUCONAZOLE 200 MG/NS 100 ML 100 ML IV SCH (14:04)
[2019-06-07] MEDS: IRON SUCROSE COMPLEX 100 MG in SODIUM CHLORIDE 0.9% 50 ML IV SCH (14:04)
[2019-06-07] MEDS: PREDNISONE 20 MG TABLET PO SCH ×2 (14:05→21:50)
[2019-06-07] MEDS: LISINOPRIL 10 MG TABLET PO SCH (14:05)
[2019-06-07] MEDS: FAMOTIDINE 20MG TAB 20 MG TAB PO SCH (14:05)
[2019-06-07] MEDS: BISACODYL 5 MG TABLET.DR PO SCH ×2 (14:05→14:07)
--- NOTE | 2019-06-07 14:17 | NUR ---
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 Pt tolerating Renal Dialysis, 75gm CCD upon visit. Pt with no GI distress, Fair PO intake at 75%. Pt receiving hemodialysis at time of visit and tolerating. Pt reports dislikes food;RD to update food preferences. Pt also with request of Nepro;RD recommend to provide BID. Pt LBM 06/06/19. Pt monitored labs:Hgb 7.8, Hct 23.2, Na 129, BUN 40, Cr 6.1, GFR 8, Glu 120, Ca 7.7, P 7.0, procalcitonin 2.08. RD to continue to monitor. Please notify RD as additional nutrition concerns arise. Thank you. Addendum: 06/07/19 at [address] RD Amended: Links added.
[2019-06-07 14:45] VITALS: BP 140/63
[2019-06-07] MEDS: SULFAMETHOX-TMP DS 800/160 TAB PO SCH (18:18)
[2019-06-07 19:00] VITALS: BP 140/73
[2019-06-07 23:00] VITALS: BP 148/82
[2019-06-08 03:00] VITALS: BP 129/71
[2019-06-08] MEDS: LEVOTHYROXINE 50 MCG TABLET PO SCH (06:00)
[2019-06-08] MEDS: IPRATROPIUM/ALBUTEROL SULFATE 3 ML SOLUTION IH SCH ×4 (06:34→23:08)
[2019-06-08 08:00] VITALS: BP 126/65
[2019-06-08] MEDS ORDERED: CYCLOPHOSPHAMIDE 50 MG CAPSULE PO SCH (09:15)
[2019-06-08] MEDS: FLUCONAZOLE 200 MG/NS 100 ML 100 ML IV SCH (09:26)
[2019-06-08] MEDS: BISACODYL 5 MG TABLET.DR PO SCH ×2 (09:27→21:09)
[2019-06-08] MEDS: PREDNISONE 20 MG TABLET PO SCH ×3 (09:27→17:54)
[2019-06-08] MEDS: FAMOTIDINE 20MG TAB 20 MG TAB PO SCH (09:27)
[2019-06-08] MEDS: METOPROLOL TARTRATE 50 MG TAB PO SCH ×2 (09:27→21:00)
[2019-06-08] MEDS: LISINOPRIL 10 MG TABLET PO SCH (09:28)
[2019-06-08] MEDS: IRON SUCROSE COMPLEX 100 MG in SODIUM CHLORIDE 0.9% 50 ML IV SCH (10:47)
[2019-06-08 11:00] VITALS: BP_SYST 108; BP_SYST 136; BP_DIAS 54; BP_DIAS 74
[2019-06-08] MEDS: ZOSYN 3.375GM+NS 50ML 50 ML IV SCH ×2 (11:56→21:09)
[2019-06-08 16:00] VITALS: BP 131/67
[2019-06-08] MEDS: SULFAMETHOX-TMP DS 800/160 TAB PO SCH (17:54)
[2019-06-08 19:00] VITALS: BP 137/74
[2019-06-08] MEDS: CYCLOPHOSPHAMIDE 50 MG CAPSULE PO SCH (21:09)
[2019-06-08 23:00] VITALS: BP 133/82
[2019-06-09] MEDS ORDERED: ZOLPIDEM TARTRATE 5 MG TAB PO PRN (01:15)
[2019-06-09] MEDS ORDERED: ZOLPIDEM TARTRATE 5 MG TAB ONE (01:17)
[2019-06-09 03:00] VITALS: BP 130/70
[2019-06-09 03:57] LABS: HEMATOCRIT 23.5 % (36-48); MEAN CORPUSCULAR HEMOGLOBIN 28.1 pg (27.0-33.0); MEAN CORPUSCULAR HGB CONC 33.6 g/dL (32.0-36.0); MEAN CORPUSCULAR VOLUME 83.6 fL (79-99); NUCLEATED RED BLOOD CELLS 0.1 % (0.0-0.19); PLATELET COUNT (AUTO) 185 K/uL (130-400); RED BLOOD CELL COUNT(AUTO) 2.81 MIL/uL (4.00-5.50); RED CELL DISTRIBUTION WIDTH 17.3 % (11.0-15.5); WHITE BLOOD COUNT (AUTO) 5.9 K/uL (4.8-10.8)
[2019-06-09 04:09] LABS: BAND NEUTROPHILS % (MANUAL) 4 % (0-2); CREATININE 6.3 mg/dL (0.5-1.5); LYMPHOCYTES % (MANUAL) 14 % (22-44); MAN.DIFF COMMENT-IMPRESSION MANUAL DIFFERENTIAL; MONOCYTES % (MANUAL) 4 % (2-9); PHOSPHORUS 3.1 mg/dL (2.5-4.9); PLATELET MORPHOLOGY COMMENT ADEQUATE; POTASSIUM 3.5 mmol/L (3.5-5.1); SEGMENTED NEUTROPHILS % 78 % (40-70)
[2019-06-09] MEDS: IPRATROPIUM/ALBUTEROL SULFATE 3 ML SOLUTION IH SCH ×4 (06:23→23:24)
[2019-06-09] MEDS: LEVOTHYROXINE 50 MCG TABLET PO SCH (06:29)
[2019-06-09 07:25] VITALS: BP 116/60
[2019-06-09] MEDS: METOPROLOL TARTRATE 50 MG TAB PO SCH ×2 (09:00→20:46)
[2019-06-09] MEDS: LISINOPRIL 10 MG TABLET PO SCH (09:00)
[2019-06-09] MEDS: CYCLOPHOSPHAMIDE 50 MG CAPSULE PO SCH ×2 (09:40→20:46)
[2019-06-09] MEDS: BISACODYL 5 MG TABLET.DR PO SCH ×2 (09:40→20:46)
[2019-06-09] MEDS: PREDNISONE 20 MG TABLET PO SCH (09:40)
[2019-06-09] MEDS: FAMOTIDINE 20MG TAB 20 MG TAB PO SCH (09:40)
[2019-06-09] MEDS: ZOSYN 3.375GM+NS 50ML 50 ML IV SCH ×2 (09:45→22:10)
[2019-06-09 12:00] VITALS: BP 147/73
[2019-06-09] MEDS: IRON SUCROSE COMPLEX 100 MG in SODIUM CHLORIDE 0.9% 50 ML IV SCH (14:41)
[2019-06-09] MEDS: ACETAMINOPHEN 325 MG TAB PO PRN (14:51)
[2019-06-09] MEDS: FLUCONAZOLE 200 MG/NS 100 ML 100 ML IV SCH (15:59)
[2019-06-09 16:00] VITALS: BP 152/70
[2019-06-09] MEDS: SULFAMETHOX-TMP DS 800/160 TAB PO SCH (17:41)
[2019-06-09 19:00] VITALS: BP 144/75
[2019-06-09 23:00] VITALS: BP 141/85
[2019-06-10 03:00] VITALS: BP 156/78
[2019-06-10] MEDS: GUAIFENESIN-CODEINE 5 ML SYRUP PO PRN (04:25)
[2019-06-10 04:38] LABS: HEMATOCRIT 25.3 % (36-48); MEAN CORPUSCULAR HEMOGLOBIN 27.2 pg (27.0-33.0); MEAN CORPUSCULAR HGB CONC 32.7 g/dL (32.0-36.0); MEAN CORPUSCULAR VOLUME 83.2 fL (79-99); PLATELET COUNT (AUTO) 271 K/uL (130-400); RED BLOOD CELL COUNT(AUTO) 3.04 MIL/uL (4.00-5.50); RED CELL DISTRIBUTION WIDTH 17.3 % (11.0-15.5); WHITE BLOOD COUNT (AUTO) 11.1 K/uL (4.8-10.8)
[2019-06-10 04:56] LABS: CREATININE 4.7 mg/dL (0.5-1.5); POTASSIUM 3.1 mmol/L (3.5-5.1)
[2019-06-10 04:59] LABS: PHOSPHORUS 2.7 mg/dL (2.5-4.9)
[2019-06-10 05:35] LABS: BAND NEUTROPHILS % (MANUAL) 2 % (0-2); LYMPHOCYTES % (MANUAL) 12 % (22-44); MAN.DIFF COMMENT-IMPRESSION MANUAL DIFFERENTIAL; MONOCYTES % (MANUAL) 8 % (2-9); SEGMENTED NEUTROPHILS % 78 % (40-70)
[2019-06-10 05:36] LABS: PLATELET MORPHOLOGY COMMENT ADEQUATE
[2019-06-10] MEDS: LEVOTHYROXINE 50 MCG TABLET PO SCH (06:34)
[2019-06-10] MEDS: IPRATROPIUM/ALBUTEROL SULFATE 3 ML SOLUTION IH SCH ×2 (06:42→11:21)
[2019-06-10 07:25] VITALS: BP 133/78
--- NOTE | 2019-06-10 07:30 | NUR ---
ASSESSMENT ENCOUNTERED PT A&OX3, CALM COOPERATIVE AND DOES NOT APPEAR TO BE IN ANY DISTRESS NOR ANY NEURO DEFICITS PRESENT. PT DENIES PAIN, SOB, NAUSEA. PT IS AMBULATORY, GAIT STEADY AND STRONG WITH STAND BY ASSIST. PERMACATH TO [facility], SITE DRY AND INTACT. LAVA WITH BRUIT/THRILL PRESENT. CALL LIGHT WITHIN REACH, FAMILY AT BEDSIDE.
[2019-06-10] MEDS: IRON SUCROSE COMPLEX 100 MG in SODIUM CHLORIDE 0.9% 50 ML IV SCH (10:35)
[2019-06-10] MEDS: CYCLOPHOSPHAMIDE 50 MG CAPSULE PO SCH (10:38)
[2019-06-10] MEDS: METOPROLOL TARTRATE 50 MG TAB PO SCH (10:38)
[2019-06-10] MEDS: FAMOTIDINE 20MG TAB 20 MG TAB PO SCH (10:38)
[2019-06-10] MEDS: SULFAMETHOX-TMP DS 800/160 TAB PO SCH (10:38)
[2019-06-10] MEDS: BISACODYL 5 MG TABLET.DR PO SCH (10:38)
[2019-06-10] MEDS: PREDNISONE 20 MG TABLET PO SCH (10:39)
[2019-06-10] MEDS: LISINOPRIL 10 MG TABLET PO SCH (10:39)
[2019-06-10] MEDS: ZOSYN 3.375GM+NS 50ML 50 ML IV SCH (10:40)
[2019-06-10] MEDS: FLUCONAZOLE 200 MG/NS 100 ML 100 ML IV SCH (10:40)
[2019-06-10 11:30] VITALS: BP 140/68
--- NOTE | 2019-06-10 15:30 | NUR ---
cm note spoke to kely director regardingEMS need for transfer [facility], and pt has [employer] states ok to inform [facility] to bill [employer] and if not covered to go ahead and bill C. all info faxed to [facility],
--- NOTE | 2019-06-10 17:15 | NUR ---
REPORT CALLED TO ROBERTO CARLOS SPOKE TO JESUS OVALLES RN,
--- NOTE | 2019-06-10 17:49 | NUR ---
DISCHARGE INSTRUCTIONS GIVEN, PIV REMAINED FOR CONTINUED ANTIBIOTICS AT [facility], TELE PACK REMOVED, EMS AT BEDSIDE.
== END 2019-06-10 17:40 | DRG 871 ==
LOC: EDH 01:34 → EDHIP 04:17 → 3CH 08:13 → 3AH 23:52 → 2DH 06-02 15:53
PROVIDERS: ADMIT Internal Medicine; ATTEND Internal Medicine
PROC: 5A1D70Z Performance of Urinary Filtration, Intermittent, Less than 6 Hours Per Day (ICD-10-PCS; 2019-05-31)
PROC: 30233N1 Transfusion of Nonautologous Red Blood Cells into Peripheral Vein, Percutaneous Approach (ICD-10-PCS; 2019-06-01)
PROC: 0BH18EZ Insertion of Endotracheal Airway into Trachea, Via Natural or Artificial Opening Endoscopic (ICD-10-PCS; 2019-06-02)
PROC: 5A1D70Z Performance of Urinary Filtration, Intermittent, Less than 6 Hours Per Day (ICD-10-PCS; 2019-06-02)
PROC: 5A1D70Z Performance of Urinary Filtration, Intermittent, Less than 6 Hours Per Day (ICD-10-PCS; 2019-06-05)
PROC: 0B9J8ZX Drainage of Left Lower Lung Lobe, Via Natural or Artificial Opening Endoscopic, Diagnostic (ICD-10-PCS; principal; 2019-06-06)
PROC: 0BB38ZX Excision of Right Main Bronchus, Via Natural or Artificial Opening Endoscopic, Diagnostic (ICD-10-PCS; 2019-06-06)
PROC: 5A1D70Z Performance of Urinary Filtration, Intermittent, Less than 6 Hours Per Day (ICD-10-PCS; 2019-06-07)
PROC: 5A1D70Z Performance of Urinary Filtration, Intermittent, Less than 6 Hours Per Day (ICD-10-PCS; 2019-06-09)
DX: A41.9 Sepsis, unspecified organism (principal); J15.6 Pneumonia due to other Gram-negative bacteria; N18.6 End stage renal disease; J96.91 Respiratory failure, unspecified with hypoxia; R04.2 Hemoptysis; E87.1 Hypo-osmolality and hyponatremia; I12.0 Hypertensive chronic kidney disease with stage 5 chronic kidney disease or end stage renal disease; N39.0 Urinary tract infection, site not specified; M31.8 Other specified necrotizing vasculopathies; D62 Acute posthemorrhagic anemia; E87.6 Hypokalemia; Z99.2 Dependence on renal dialysis; R31.9 Hematuria, unspecified; E11.22 Type 2 diabetes mellitus with diabetic chronic kidney disease; I77.6 Arteritis, unspecified; D63.8 Anemia in other chronic diseases classified elsewhere; J42 Unspecified chronic bronchitis; E03.9 Hypothyroidism, unspecified; E66.9 Obesity, unspecified; Z68.30 Body mass index [BMI] 30.0-30.9, adult; E78.00 Pure hypercholesterolemia, unspecified; K59.00 Constipation, unspecified; Z80.8 Family history of malignant neoplasm of other organs or systems; Z82.49 Family history of ischemic heart disease and other diseases of the circulatory system; Z82.5 Family history of asthma and other chronic lower respiratory diseases; Z83.3 Family history of diabetes mellitus; Z90.49 Acquired absence of other specified parts of digestive tract
CPT/HCPCS: 31622; 31628; 36415; 36430; 71045; 71250; 80048; 80053; 80061; 81001; 82728; 82948; 83036; 83520; 83540; 83550; 83735; 84100; 84145; 85025; 85027; 85610; 85730; 86038; 86215; 86235; 86255; 86606; 86612; 86635; 86698; 86701; 86704; 86706; 86850; 86900; 86901; 86922; 87070; 87071; 87076; 87077; 87088; 87101; 87116; 87186; 87205; 87206; 87252; 87340; 87390; 87486; 87520; 87581; 87633; 87798; 87804; 88108; 88305; 88307; 88312; 89051; 90935; 93005; 94640; 94664; A4606; G0378; J0171; J0456; J0696; J0885; J1450; J1644; J1756; J2543; J2704; J2920; J3010; J3490; J7030; J7070; J7512; P9016

== ENCOUNTER 2019-11-28 15:58 | Inpatient (IN) | payer MEDICARE, OTHER ==
[~2019-11-28] VITALS: Ht 154.9 cm; Wt 65.5 kg
[~2019-11-28 15:58] MED LIST changes: +LISI10TA7 PO; +MONT10TA26 PO; +PLEC3TAB PO
[2019-11-28 16:56] LABS: BASOPHILS % (AUTO) 0.3 % (0.0-5.0); EOSINOPHILS % (AUTO) 0.2 % (0.0-8.0); HEMATOCRIT 21.3 % (36-48); LYMPHOCYTES % (AUTO) 4.6 % (21.0-51.0); MEAN CORPUSCULAR HEMOGLOBIN 30.6 pg (27.0-33.0); MEAN CORPUSCULAR HGB CONC 32.9 g/dL (32.0-36.0); MONOCYTES % (AUTO) 4.2 % (3.0-13.0); NEUTROPHILS % (AUTO) 90.4 % (40.0-77.0); PLATELET COUNT (AUTO) 277 K/uL (130-400); RED BLOOD CELL COUNT(AUTO) 2.29 MIL/uL (4.00-5.50); RED CELL DISTRIBUTION WIDTH 18.3 % (11.0-15.5); WHITE BLOOD COUNT (AUTO) 8.9 K/uL (4.8-10.8)
[2019-11-28 17:12] LABS: CARBON DIOXIDE 23 mmol/L (21-32); CHLORIDE 94 mmol/L (101-111); CREATININE 6.4 mg/dL (0.5-1.5); GLOMERULAR FILTR. RATE CALC 7 mL/min (>60); GLUCOSE,RANDOM 104 mg/dL (70-105); POTASSIUM 3.7 mmol/L (3.5-5.1); SODIUM SERUM 131 mmol/L (136-145); UREA NITROGEN, BLOOD 32 mg/dL (7-18)
[2019-11-28 17:14] LABS: ABG BASE EXCESS -2.9 mmol/L (-2.0-3.0); ABG HCO3 21.3 mmol/L (21.0-28.0); ABG PCO2 34 mmHg (32-45)
[2019-11-28 17:16] LABS: INR 1.08 (0.85-1.15); PARTIAL THROMBOPLASTIN TIME 34.3 SEC (26.3-35.5); PROTHROMBIN TIME 11.6 SEC (9.6-11.6)
[2019-11-28 17:18] LABS: ALBUMIN 2.9 g/dL (3.5-5.0); ASPARTATE AMINOTRANSFERASE 17 U/L (10-37); BILIRUBIN,TOTAL 0.6 mg/dL (0.2-1.0); CREATINE KINASE, TOTAL 139 U/L (21-232); TOTAL PROTEIN, SERUM 6.4 g/dL (6.0-8.3)
[2019-11-28 17:52] LABS: ALANINE AMINOTRANSFERASE < 6 U/L (12-78)
[2019-11-28] MEDS ORDERED: DiphenhydrAMINE HCL 50 MG/ML VIAL IV PRN (22:15)
[2019-11-28] MEDS ORDERED: ZOLPIDEM TARTRATE 5 MG TAB PO PRN (22:15)
[2019-11-28] MEDS ORDERED: ACETAMINOPHEN-CODEINE 300/30MG TAB PO PRN (22:15)
[2019-11-28] MEDS ORDERED: NITROGLYCERIN 0.4 MG SL TAB SL PRN (22:15)
[2019-11-28] MEDS ORDERED: ONDANSETRON HCL 4 MG/2 ML VIAL IV PRN (22:15)
[2019-11-28] MEDS ORDERED: MAG HYDROX/AL HYDROX/SIMETH ES 30 ML SUSP UDCUP PO PRN (22:15)
[2019-11-28] MEDS ORDERED: HYDROMORPHONE 1 MG/1 ML AMP IV PRN (22:15)
[2019-11-28] MEDS ORDERED: DIPHENHYDRAMINE HCL 25 MG CAPSULE PO PRN (22:15)
[2019-11-28] MEDS ORDERED: HYDRALAZINE HCL 20 MG/ML VIAL IV PRN (22:15)
[2019-11-28] MEDS ORDERED: ACETAMINOPHEN 325 MG TAB PO PRN (22:15)
[2019-11-28] MEDS ORDERED: LACTULOSE 20 GM/30 ML UDCUP PO PRN (22:15)
[2019-11-28 23:26] VITALS: BP 193/96
[2019-11-28 23:41] VITALS: BP 189/87
[2019-11-28 23:56] VITALS: BP 191/80
[2019-11-29] VITALS (27 sets, daily range): BP systolic 149–209; BP diastolic 60–94
[2019-11-29] MEDS ORDERED: VANCOMYCIN 1GM+NS 250ML 250 ML IV SCH
[2019-11-29] MEDS: GUAIFENESIN-DM 200/20 MG 10 ML PO PRN ×2 (00:04→17:03)
[2019-11-29] MEDS ORDERED: VANCOMYCIN 1GM+NS 250ML 250 ML IV ONE (00:07)
[2019-11-29] MEDS: ZOSYN 3.375GM+NS 50ML 50 ML IV SCH ×2 (00:23→16:08)
[2019-11-29] MEDS ORDERED: VANCOMYCIN PROTOCOL PER PHARMACY IV SCH ×2 (00:30→06:15)
--- NOTE | 2019-11-29 01:55 | NUR ---
STATS PATIENT STILL WITH CONTINUOUS COUGHING AFTER ANTITUSSIVE GIVEN. PATIENT REMAINS HYPERTENSIVE AFTER ANTIHYPERTENSIVE GIVE. CC PLATER BARREL FILM REPLACEMENT ORDERER NOTIFIED AND ANTITUSSIVE WITH CODEINE WAS ORDERED AND HYDRALAZINE FREQUENCY CHANGED
[2019-11-29] MEDS ORDERED: GUAIFENESIN-CODEINE 5 ML SYRUP ONE (02:01)
[2019-11-29] MEDS ORDERED: HYDRALAZINE HCL 20 MG/ML VIAL ONE (02:02)
[2019-11-29] MEDS: INSULIN HUMULIN R 100 UNIT/ML 3ML SQ SCH ×3 (05:39→16:30)
[2019-11-29 05:40] LABS: BASOPHILS % (AUTO) 0.2 % (0.0-5.0); LYMPHOCYTES % (AUTO) 6.5 % (21.0-51.0); MEAN CORPUSCULAR HEMOGLOBIN 29.6 pg (27.0-33.0); MEAN CORPUSCULAR HGB CONC 31.3 g/dL (32.0-36.0); MEAN CORPUSCULAR VOLUME 94.4 fL (79-99); NEUTROPHILS % (AUTO) 88.6 % (40.0-77.0); PLATELET COUNT (AUTO) 315 K/uL (130-400); RED BLOOD CELL COUNT(AUTO) 2.13 MIL/uL (4.00-5.50); RED CELL DISTRIBUTION WIDTH 18.2 % (11.0-15.5)
[2019-11-29 05:57] LABS: HEMATOCRIT 20.1 % (36-48)
[2019-11-29 06:04] LABS: ALBUMIN 2.6 g/dL (3.5-5.0); BILIRUBIN,TOTAL 0.6 mg/dL (0.2-1.0); CREATININE 7.3 mg/dL (0.5-1.5); MAGNESIUM 1.9 mg/dL (1.80-2.40); TOTAL PROTEIN, SERUM 5.8 g/dL (6.0-8.3)
--- NOTE | 2019-11-29 06:05 | NUR ---
H/H CC RECRUITMENT INTERN MEDICAL TECHNOLOGIST PRN NOTIFIED OF CRITICAL H/H AND UPDATED ON PATIENT CONDITION. ORDERS TO TRANSFUSE 1 UNIT PRBC WITH HD TODAY.
[2019-11-29] MEDS: GUAIFENESIN-CODEINE 5 ML SYRUP PO PRN ×4 (06:08→18:02)
[2019-11-29 06:13] LABS: INR 1.12 (0.85-1.15)
--- NOTE | 2019-11-29 06:35 | NUR ---
NEPHROLOGY CONSULT DR ALDRIDGE NOTIFIED OF NEPHROLOGY CONSULT. ORDERS RECEIVED FOR HEMODIALYSIS. ORDERS ENTERED INTO SYSTEM. ADD TO CENSUS
--- NOTE | 2019-11-29 07:25 | NUR ---
CONSENTS VERBAL CONSENT RECEIVED FROM PATIENT FOR HD AND TRANSFUSION OF BLOOD. JOSELINE MILLS WITNESS.
[2019-11-29 07:32] LABS: ALBUMIN 2.5 g/dL (3.5-5.0); CREATININE 7.4 mg/dL (0.5-1.5)
[2019-11-29 08:09] LABS: % IRON SATURATION 10.4 % (22-44)
[2019-11-29 08:14] LABS: ABG BASE EXCESS -2.5 mmol/L (-2.0-3.0); ABG OXYGEN SATURATION 96.4 % (95.0-99.0); ABG PCO2 37 mmHg (32-45)
[2019-11-29 08:15] LABS: HEMOGLOBIN A1C 3.7 % (4.0-6.0)
[2019-11-29] MEDS ORDERED: FAMOTIDINE 20MG TAB 20 MG TAB PO SCH (09:00)
[2019-11-29] MEDS: ACETAMINOPHEN 325 MG TAB PO PRN ×2 (12:02→17:12)
--- NOTE | 2019-11-29 12:19 | NUR ---
REJI PLAN PATIENT IN COVID ISOLATION UNIT. UNABLE TO SEE PATIENT INFO GOTTEN FROM MEDICAL RECORD AT THIS TIME. PATIENT LIVES WITH SPOUSE. INDEPENDENT ABLE TO PERFORM ADL'S. PATIENT GOES TO [facility] 145 PM. PLAN IS TO RETURN HOME. POSSIBLY SNF LAST TIME WENT TO [facility]. Addendum: 11/29/19 at 1238 by HARPAL WILKS RN CM Amended: Links added.
[2019-11-29] MEDS ORDERED: SODIUM CHLORIDE 0.9% 500ML 500 ML IV ONE (12:31)
[2019-11-29] MEDS ORDERED: CYCLOPHOSPHAMIDE 50 MG PO SCH (12:51)
[2019-11-29] MEDS ORDERED: EPOETIN ALFA 10,000 UNIT/ML VIAL SQ SCH (12:52)
[2019-11-29] MEDS ORDERED: HEPARIN SODIUM 5000UNIT/ML 1ML VIAL IJ PRN ×2 (13:00)
[2019-11-29] MEDS ORDERED: NITROGLYCERIN 0.4 MG SL TAB SL PRN (13:00)
[2019-11-29] MEDS ORDERED: SODIUM CHLORIDE 0.9% 1000ML 1,000 ML IV PRN (13:00)
[2019-11-29] MEDS ORDERED: 0.9% SODIUM CHLORIDE 1000 ML IV BAG IV PRN (13:00)
[2019-11-29] MEDS ORDERED: ACETAMINOPHEN 325 MG TAB PO PRN (13:00)
[2019-11-29] MEDS ORDERED: LIDOCAINE HCL-MPF 1% 2ML VIAL IJ PRN (13:00)
[2019-11-29] MEDS ORDERED: VANCOMYCIN 500MG+NS 100ML 100 ML IV SCH (13:15)
[2019-11-29] MEDS ORDERED: METHYLPREDNISOLONE SOD SUCC 125MG/2ML VIAL IV SCH (15:00)
[2019-11-29] MEDS ORDERED: METHYLPREDNISOLONE SOD SUCC 500 MG in SODIUM CHLORIDE 0.9% 50 ML IV SCH (16:00)
[2019-11-29] MEDS: HYDRALAZINE HCL 20 MG/ML VIAL IV PRN ×2 (16:08→18:21)
[2019-11-29 16:57] LABS: HEMATOCRIT 29.5 % (36-48)
[2019-11-29] MEDS ORDERED: CYCLOPHOSPHAMIDE 50 MG CAPSULE PO SCH (21:00)
[2019-11-29] MEDS ORDERED: CYCLOPHOSPHAMIDE PO SCH (21:00)
[2019-11-30 08:10] LABS: HEPATITIS Bs ANTIGEN SCREEN P Negative (Negative)
[2019-12-01] MEDS ORDERED: VANCOMYCIN 1GM+NS 250ML 250 ML IV SCH (13:03)
[2019-12-02] MEDS ORDERED: EPOETIN ALFA 10,000 UNIT/ML VIAL SQ SCH (09:00)
== END 2019-11-29 18:47 | disposition short-term general hospital (02) | DRG 193 ==
LOC: EDH 15:58 → EDHIP 19:25 → 2CH 22:48
PROVIDERS: ADMIT Internal Medicine Critical Care Medicine; ATTEND Internal Medicine Critical Care Medicine
PROC: 5A1D70Z Performance of Urinary Filtration, Intermittent, Less than 6 Hours Per Day (ICD-10-PCS; principal; 2019-11-29)
PROC: 30233N1 Transfusion of Nonautologous Red Blood Cells into Peripheral Vein, Percutaneous Approach (ICD-10-PCS; 2019-11-29)
DX: J18.9 Pneumonia, unspecified organism (principal); N18.6 End stage renal disease; I12.0 Hypertensive chronic kidney disease with stage 5 chronic kidney disease or end stage renal disease; D63.1 Anemia in chronic kidney disease; E03.9 Hypothyroidism, unspecified; Z20.828 Contact with and (suspected) exposure to other viral communicable diseases; E11.22 Type 2 diabetes mellitus with diabetic chronic kidney disease; I77.6 Arteritis, unspecified; Z99.2 Dependence on renal dialysis; Z88.1 Allergy status to other antibiotic agents; Z83.3 Family history of diabetes mellitus; Z87.440 Personal history of urinary (tract) infections; Z90.49 Acquired absence of other specified parts of digestive tract; Z98.891 History of uterine scar from previous surgery
CPT/HCPCS: 36415; 36600; 71045; 71250; 80053; 80061; 82040; 82435; 82550; 82565; 82728; 82803; 82947; 82948; 83036; 83540; 83550; 83605; 83735; 84132; 84295; 84484; 84520; 85014; 85018; 85025; 85610; 85730; 86606; 86612; 86635; 86698; 86701; 86704; 86706; 86850; 86900; 86901; 86922; 87040; 87071; 87116; 87205; 87206; 87340; 87390; 87520; 87633; 87804; 90935; 93005; 99291; G0378; J0360; J0885; J1644; J2543; J2930; J3370; J7040; P9016; Q0163